=== PATIENT | male | born 1955 | race Caucasian/White ===

== ENCOUNTER → 2023-12-25 | Outpatient (CLI) | payer OTHER, MEDICARE ==
[~2023-12-25] MED LIST: AMMO12LO TOP; ASPI81CH33 PO; ATEN25TA PO; ATOR80TA59 PO; EZET10TA21 PO; FLOM0.4C39 PO; INSULIN PUMP NOVOLOG; LEVO100T5 PO; LISI20TA33 PO; METO10TA2 PO; MM S100C PO; NALO4SPR NARES; NEXI40CA PO; OXYC10TA3 PO; OXYC40TA29 PO; POLY17PO18 PO; SENO8.6T5 PO; XALA0.007 OS
== END ==
LOC: M SLEEP 20:00
PROVIDERS: ATTEND Family Medicine
DX: G47.33 Obstructive sleep apnea (adult) (pediatric) (principal); R06.83 Snoring; R40.0 Somnolence; G47.31 Primary central sleep apnea

== ENCOUNTER → 2023-12-26 | Outpatient (CLI) | payer MEDICARE, OTHER ==
[~2023-12-26] MED LIST changes: +HOME MED LIST COMPLETE! XX SCH; +LIDOCAINE 1% MDV 20ML VIAL As Ordered ONE
[2023-12-26 07:25] VITALS: TEMP 98.3
[2023-12-26 07:50] LABS: HEMATOCRIT 42.8 % (42.0-52.0); HEMOGLOBIN 13.9 g/dl (13.5-17.5); MEAN CORPUSCULAR HEMOGLOBIN 32.3 pg (27.0-33.0); MEAN CORPUSCULAR HGB CONC 32.5 g/dl (32.0-36.5); MEAN CORPUSCULAR VOLUME 99.5 fl (80.0-96.0); PLATELET COUNT, AUTOMATED 176 10^3/uL (150-450); WHITE BLOOD COUNT 6.9 10^3/uL (4.0-10.0)
[2023-12-26 08:10] LABS: INR 1.07; PROTHROMBIN TIME 13.6 SECONDS (12.5-14.5)
[2023-12-26 11:30] VITALS: BP 185/86; O2SAT 97
== END ==
LOC: M IRPRO 07:02 → EDUNIT# 09:00
PROVIDERS: ATTEND Nurse Practitioner Acute Care
DX: R91.1 Solitary pulmonary nodule (principal); J95.811 Postprocedural pneumothorax; C34.11 Malignant neoplasm of upper lobe, right bronchus or lung